=== PATIENT | male | born 1980 | race Caucasian/White ===

== ENCOUNTER 2019-03-01 21:59 | Emergency (ER) | payer SELFPAY | END 2019-03-01 22:46 | disposition home or self-care (01) | LOC: M ED 21:59 | DX: F11.10 Opioid abuse, uncomplicated (principal) ==

== ENCOUNTER 2019-04-25 01:23 | Emergency (ER) | payer SELFPAY ==
[~2019-04-25] VITALS: Ht 165.1 cm; Wt 61.4 kg
[2019-04-25] MEDS ORDERED: NS 1,000 ML IV ONE (02:30)
[2019-04-25 02:40] LABS: BASO # 0.1 10^3/uL (0.0-0.2); BASO % 0.3 % (0.0-1.0); EOS % 0.2 % (0.0-3.0); HEMATOCRIT 41.2 % (42.0-52.0); HEMOGLOBIN 13.4 g/dl (13.5-17.5); LYMPH # 1.9 10^3/uL (1.5-4.5); LYMPH % 10.6 % (24.0-44.0); MEAN CORPUSCULAR HEMOGLOBIN 28.9 pg (27.0-33.0); MEAN CORPUSCULAR HGB CONC 32.5 g/dl (32.0-36.5); MONO # 1.8 10^3/uL (0.0-0.8); MONO % 10.1 % (0.0-5.0); NEUTROPHILS # 14.3 10^3/uL (1.8-7.7); NEUTROPHILS % 78.2 % (36.0-66.0); PLATELET COUNT, AUTOMATED 363 10^3/uL (150-450); RED BLOOD COUNT 4.63 10^6/uL (4.30-6.10); WHITE BLOOD COUNT 18.2 10^3/uL (4.0-10.0)
[2019-04-25 03:06] LABS: ALBUMIN 3.1 GM/DL (3.2-5.2); ALT/SGPT 23 U/L (12-78); BILIRUBIN,TOTAL 0.3 MG/DL (0.2-1.0); BLOOD UREA NITROGEN 15 MG/DL (7-18); CALCIUM LEVEL 9.1 MG/DL (8.5-10.1); CARBON DIOXIDE LEVEL 30 MEQ/L (21-32); CHLORIDE LEVEL 102 MEQ/L (98-107); CREATININE FOR GFR 1.14 MG/DL (0.70-1.30); GLOMERULAR FILTRATION RATE > 60.0 (>60); GLUCOSE, FASTING 109 MG/DL (70-100); POTASSIUM SERUM 3.7 MEQ/L (3.5-5.1); SODIUM LEVEL 138 MEQ/L (136-145); TOTAL PROTEIN 6.9 GM/DL (6.4-8.2)
[2019-04-25] MEDS ORDERED: ACETAMINOPHEN 325 MG TAB PO ONE (03:30)
[2019-04-25] MEDS ORDERED: BACT800T5 PO (03:39)
[2019-04-25 03:42] VITALS: BP 126/73
[2019-04-25] MEDS ORDERED: BACTRIM 160MG/800MG DS TAB PO ONE (03:45)
== END 2019-04-25 03:54 | disposition home or self-care (01) ==
LOC: M ED 01:23
DX: L03.116 Cellulitis of left lower limb (principal); F17.210 Nicotine dependence, cigarettes, uncomplicated

== ENCOUNTER 2020-06-22 12:38 | Emergency (ER) | payer SELFPAY ==
[~2020-06-22] VITALS: Ht 165.1 cm; Wt 58.8 kg
[2020-06-22 12:38] VITALS: BP 134/80
[~2020-06-22 12:38] MED LIST: BACT800T5 PO
[2020-06-22] MEDS ORDERED: EXCETAB33 PO (12:43)
[2020-06-22] MEDS ORDERED: AUGM875T28 PO (13:23)
[2020-06-22] MEDS ORDERED: IBUPROFEN 600MG TAB PO ONE (13:30)
[2020-06-22] MEDS ORDERED: AUGMENTIN 875 MG TAB PO ONE (13:30)
== END 2020-06-22 13:32 | disposition home or self-care (01) ==
LOC: M ED 12:38
DX: K08.89 Other specified disorders of teeth and supporting structures (principal); Z79.82 Long term (current) use of aspirin; F17.200 Nicotine dependence, unspecified, uncomplicated